=== PATIENT | female | born 1960 | race Caucasian/White ===

== ENCOUNTER 2019-09-01 14:10 | Outpatient (CLI) | payer OTHER ==
--- NOTE | 2019-09-01 15:27 | MMO ---
Left Breast MAMMO [facility] LT+EDITH. CLINICAL HISTORY: Patient is 59 years old and is seen for diagnostic exam. The patient has no family history of breast cancer. The patient has no personal history of cancer. VIEWS: The views performed were: left craniocaudal with tomosynthesis; left mediolateral oblique with tomosynthesis; and left mediolateral with tomosynthesis. FILMS COMPARED: The present examination has been compared to a prior imaging study performed at [facility] on 09/01/2019. This study has been interpreted with the assistance of computer-aided detection. MAMMOGRAM FINDINGS: There are scattered fibroglandular densities. There is an intramammary lymph node seen in the left breast at 12 o'clock. This represents the screening finding and is confirmed sonographically. There are no suspicious masses, suspicious calcifications, or new areas of architectural distortion. IMPRESSION: THERE IS NO MAMMOGRAPHIC EVIDENCE OF MALIGNANCY. A ROUTINE FOLLOW-UP MAMMOGRAM IN 1 YEAR IS RECOMMENDED. THE RESULTS OF THIS EXAM WERE SENT TO THE PATIENT. ACR BI-RADS Category 2 - Benign finding MAMMOGRAPHY NOTE: 1. A negative mammogram report should not delay a biopsy if a dominant of clinically suspicious mass is present. 2. Approximately 10% to 15% of breast cancers are not detected by mammography. 3. Adenosis and dense breasts may obscure an underlying neoplasm. Reported by: SEBASTIAN KENNY MD Electonically Signed: [id number]
--- NOTE | 2019-09-01 15:34 | ULT ---
LIMITED LEFT BREAST ULTRASOUND: DATE: 09/01/2019. PROVIDED CLINICAL HISTORY: Abnormal screening mammogram. FINDINGS: Limited sonographic interrogation of the left breast was performed at the 12 o'clock position. The f ocal asymmetry described at screening mammography demonstrates sonographic and diagnostic mammographi c features compatible with an intramammary lymph node. Also noted at the 12 o'clock position of the left breast sonographically is a hypoechoic shadowing focus that corresponds to an area of calcificat ion seen mammographically. IMPRESSION: BIRADS category 2 - benign findings. Return to annual screening mammography recommended. POS: OFF
== END 2019-09-01 14:11 | disposition home or self-care (01) ==
LOC: BICMAMMO 14:10
PROVIDERS: ATTEND Obstetrics & Gynecology
DX: N63.20 Unspecified lump in the left breast, unspecified quadrant (principal)
CPT/HCPCS: G0279

== ENCOUNTER 2022-06-23 15:54 | Emergency (ER) | payer BC ==
[2022-06-23 16:58] LABS: #Eosinphils 0.3 thou/uL (0.0-0.7); #Lymphocytes 0.9 thou/uL (1.20-3.40); #Monocytes 0.4 thou/uL (0.11-0.59); #Neutrophils 6.6 thou/uL (1.40-6.50); %Basophils 0.3 % (0.0-1.0); %Lymphocytes 11.4 % (21.0-51.0); %Monocytes 4.6 % (0.0-10.0); %Neutrophils 79.6 % (42.0-75.0); Hemoglobin 13.7 g/dL (12.0-16.0); Mean Corpuscular HGB CONC 34.1 g/dL (32.0-36.0); Mean Corpuscular Volume 91.1 fL (78.0-98.0); Mean Platelet Volume 8.1 fL (7.4-10.4); Platelet Count 200 thou/uL (130-400); RBC Distribution Width 11.8 % (11.5-14.5); Red Blood Cell (RBC) Count 4.42 mill/uL (4.20-5.40); White Blood Cell (WBC) Count 8.2 thou/uL (4.8-10.8)
[2022-06-23 17:21] LABS: ALT (SGPT) 28 U/L (8-55); AST (SGOT) 19 U/L (5-34); Albumin 4.1 g/dL (3.4-4.8); Alkaline Phosphatase 88 U/L (40-110); Anion Gap 17 mmol/L (10-20); BUN (Urea Nitrogen) 15 mg/dL (9.8-20.1); Bilirubin, Total 0.5 mg/dL (0.2-1.2); Calc. Creatinine Clearance 0 mL/min (70-130); Calcium 9.3 mg/dL (7.8-10.44); Carbon Dioxide 21 mmol/L (23-31); Chloride 104 mmol/L (98-107); Estimated GFR 71; Globulin 2.9 g/dL (2.4-3.5); Glucose 244 mg/dL (80-115); Potassium 4.4 mmol/L (3.5-5.1); Sodium 138 mmol/L (136-145)
[2022-06-23 17:34] LABS: Bacteria/HPF 2+ HPF (None Seen); Bilirubin Negative (Negative); Blood, Urine 3+ (Negative); Clarity Clear (Clear); Glucose, Urine (Dipstick) Greater than 1000 mg/dL (Negative); Ketone, Urine 20 mg/dL (Negative); Leukocyte Negative Leu/uL (Negative); Nitrite Negative (Negative); Protein, Urine (Dipstick) 20 mg/dL (Neg-Trace); RBC/HPF Greater than 50 HPF (0-3); Specific Gravity, Urine 1.033 (1.002-1.036); Squamous Epithelial 0-3 HPF (0-3); Urobilinogen Normal mg/dL (Less than 2); pH, Urine 5.5 (5.0-9.0)
== END 2022-06-23 19:54 | disposition home or self-care (01) ==
LOC: ERS 15:54
DX: N13.2 Hydronephrosis with renal and ureteral calculous obstruction (principal); Z79.84 Long term (current) use of oral hypoglycemic drugs; Z79.899 Other long term (current) drug therapy
CPT/HCPCS: 36415; 74176; 80053; 81003; 81015; 85025